=== PATIENT | male | born 1950 | race Caucasian/White ===

== ENCOUNTER 2018-01-27 07:54 | Day surgery (SDC) | payer BC ==
[2018-01-26 13:47] VITALS: BMI 32.9
[2018-01-27] MEDS ORDERED: Propofol 10 mg/ml Inj (20 ML) ONE (09:05)
[2018-01-27] MEDS ORDERED: Midazolam 2 MG/2 ML VIAL ONE (09:06)
[2018-01-27 12:32] VITALS: RESP 12; TEMP 97.4
[2018-01-27 14:20] VITALS: BP 110/66; PULSE 66; O2SAT 100
== END 2018-01-27 11:00 | disposition home or self-care (01) ==
LOC: C.ENDO 07:54
PROVIDERS: ATTEND Internal Medicine Gastroenterology
DX: Z12.11 Encounter for screening for malignant neoplasm of colon (principal); K64.1 Second degree hemorrhoids

== ENCOUNTER 2018-02-09 16:48 | Emergency (ER) | payer BC ==
[2018-02-09 16:48] VITALS: BMI 32.9
[2018-02-09 17:07] VITALS: PULSE 78; TEMP 98; O2SAT 98
[2018-02-09] MEDS ORDERED: Phenylephrine 1% Nasal Spray (15 ml) NAS STA (17:10)
[2018-02-09] MEDS ORDERED: Phenylephrine 1% Nasal Spray (15 ml) ONE (17:15)
[2018-02-09 17:35] LABS: INR 2.9; PROTHROMBIN TIME 33.5 SECONDS (9.7-12.2)
--- NOTE | 2018-02-09 17:52 | C.PDOC ---
History Of Present Illness 67-year-old male, presents to the emergency department with complaints of epistaxis from left nare. Patient is on Coumadin. Bleeding has currently stopped , he denies any active bleeding at this time. No light headedness, change in bowel habits, nausea/vomiting. Time Seen by Provider: 02/09/18 17:01 Chief Complaint (Nursing): ENT Problem History Per: Patient History/Exam Limitations: no limitations Past Medical History Reviewed: Historical Data, Nursing Documentation, Vital Signs Vital Signs: Last Vital Signs Temp 98 F 02/09/18 17:01 Pulse 78 02/09/18 17:01 Resp 18 02/09/18 17:01 BP 136/86 02/09/18 17:01 Pulse Ox 98 02/09/18 17:53 - Medical History PMH: Atrial Fibrillation, HTN, Hypercholesterolemia, Hypothyroidism Denies: Chronic Kidney Disease - [facility] TETANUS TOXOID ADMINIST (09/01/14) Family History: States: No Known Family Hx - Social History Hx Tobacco Use: No Hx Alcohol Use: No Hx Substance Use: No - Immunization History Hx Tetanus Toxoid Vaccination: No Hx Influenza Vaccination: No Hx Pneumococcal Vaccination: No Review Of Systems Constitutional: Negative for: Fever, Chills ENT: Positive for: Nose Discharge (bleeding, left nostril) Cardiovascular: Negative for: Chest Pain Respiratory: Negative for: Shortness of Breath Gastrointestinal: Negative for: Nausea, Vomiting Musculoskeletal: Negative for: Back Pain Neurological: Negative for: Weakness, Numbness, Headache, Dizziness Physical Exam - Physical Exam Appears: Non-toxic, No Acute Distress Skin: Normal Color, Warm, Dry, No Rash Head: Normacephalic Eye(s): bilateral: PERRL Nose: Normal, No Epistaxis (no active bleed), Other (left nare dried blood) Oral Mucosa: Moist Lips: Normal Appearing Neck: Normal ROM Chest: Symmetrical Cardiovascular: Rhythm Regular, No Murmur Respiratory: Normal Breath Sounds, No Accessory Muscle Use Extremity: Normal ROM, No Deformity, No Swelling Neurological/Psych: Oriented x3, Normal Speech ED Course And Treatment O2 Sat by Pulse Oximetry: 98 (RA) Pulse Ox Interpretation: Normal Progress Note: Gustavo-synepherine ordered. Patients nare will be packed with cotton ; INR ordered and reviewed. On re-evaluation no bleeding from left nare. Discharged to home Reassessment Condition: Improved Disposition Counseled Patient/Family Regarding: Studies Performed, Diagnosis, Need For Followup - Disposition Disposition: HOME/ ROUTINE Disposition Time: 18:30 Condition: STABLE Instructions: Nosebleeds Forms: [facility] (Maori) - POA Present On Arrival: None - Clinical Impression Clinical Impression: Nosebleed - Scribe Statement The provider has reviewed the documentation as recorded by the Scribe ([email or web address]) All medical record entries made by the Scribe were at my direction and personally dictated by me. I have reviewed the chart and agree that the record accurately reflects my personal performance of the history, physical exam, medical decision making, and the department course for this patient. I have also personally directed, reviewed, and agree with the discharge instructions and disposition.
[2018-02-09 18:10] VITALS: BP 126/86; RESP 16
== END 2018-02-09 18:10 | disposition home or self-care (01) ==
LOC: C.ER 16:48
DX: R04.0 Epistaxis (principal); Z79.01 Long term (current) use of anticoagulants